=== PATIENT | female | born 1980 | race Caucasian/White ===

== ENCOUNTER 2016-05-02 15:27 | Emergency (ER) | payer OTHER ==
[2016-05-02 15:34] VITALS: BP 128/74; PULSE 85; TEMP 98.1; BMI 44.6
--- NOTE | 2016-05-02 15:39 | PDOC ---
Rapid Medical Evaluation Chief Complaint: Pain Time Seen by Provider: 05/02/16 15:34 Medical Evaluation: Allergies Allergy/AdvReac Type Severity Reaction Status Date / Time No Known Allergies Allergy Verified 02/06/16 17:26 Vital Signs Temp Pulse Resp BP Pulse Ox 98.1 F 85 18 128/74 100 05/02/16 15:33 05/02/16 15:33 05/02/16 15:33 05/02/16 15:33 05/02/16 15:33 05/02/16 15:37 RME Note: I have performed a brief, in-person evaluation of this patient . This patient presents with CC: right wrist pain; tender navicular Pertinent PE findings are: tenwristder thumb and radial area I have ordered: xray The patient will proceed to ED for further evaluation. ,
[2016-05-02] MEDS ORDERED: ACETAMINOPHEN 500 MG TABLET (FP) PO ONE (17:16)
[2016-05-02] MEDS ORDERED: ACETAMINOPHEN 500 MG TABLET (FP) ONE (17:19)
--- NOTE | 2016-05-02 17:39 | PDOC ---
History of Present Illness - General Chief Complaint: Pain Stated Complaint: PAIN/ RT THUMB, WRIST Time Seen by Provider: 05/02/16 15:34 History Source: Patient Exam Limitations: No Limitations - History of Present Illness Initial Comments: 05/02/16 17:14 Chief complaint: Right thumb pain that radiates up her forearm Story of present illness: Patient is a 35-year-old female with a history of bipolar disorder here today complaining of right thumb pain that radiates to her right dorsal forearm to elbow area times one week. Patient reports that approximately one week ago she hit her right hand and forearm on a dresser as she was passing by. Patient reports that pain is sharp and is a 6 or 7. Reports that approximately 6 months ago she had an injury to her right thumb calling it a stress fracture she was seen at [facility] they also had noticed chip fx in her right thumb according to patient. Patient did not follow-up with an orthopedist post discharge from emergency room. 05/02/16 17:16 05/02/16 17:40 Occurred: reports: last week Past History - Past Medical History Allergies/Adverse Reactions: Allergies Allergy/AdvReac Type Severity Reaction Status Date / Time No Known Allergies Allergy Verified 02/06/16 17:26 Home Medications: Ambulatory Orders Hydroxyzine HCl 50 mg PO ASDIR 02/06/16 [place] Carbonate [Eskalith -] 600 mg PO ASDIR 02/06/16 Quetiapine Fumarate "Xr" [Seroquel XR] 150 mg PO DAILY 02/06/16 Clotrimazole/Betamethasone Dip [Clotrimazole-Betamethasone Lot] 30 ml TP BID #1 lotion 02/08/16 Clotrimazole/Betamethasone Dip [Clotrimazole-Betamethasone Lot] 30 ml TP DAILY 10 Days 02/08/16 Psychiatric Problems: Yes (major DEPRESSION, PTSD,BIPOLAR) - Surgical History Abdominal Surgery: Yes (TUBAL LIGAGTION) - Psycho/Social/Smoking Cessation Hx Anxiety: Yes Suicidal Ideation: No Smoking Status: No Smoking History: Current every day smoker Have you smoked in the past 12 months: Yes Number of Cigarettes Smoked Daily: 15 Information on smoking cessation initiated: Yes 'Breaking Loose' booklet given: 05/02/16 Hx Alcohol Use: No Drug/Substance Use Hx: No Substance Use Type: None Review of Systems - Review of Systems Able to Perform ROS?: Yes Constitutional: No: Symptoms Reported HEENTM: No: Symptoms Reported Respiratory: No: Symptoms reported Cardiac (ROS): No: Symptoms Reported ABD/GI: No: Symptoms Reported : No: Symptoms Reported Musculoskeletal: Yes: Joint Pain (rt. thumb,radiates dorsally to rt. forearm to elbow ), Joint Swelling (rt. thumb ) Integumentary: No: Symptoms Reported Neurological: No: Symptoms reported *Physical Exam - Vital Signs Last Vital Signs Temp Pulse Resp BP Pulse Ox 98.1 F 85 18 128/74 100 05/02/16 15:33 05/02/16 15:33 05/02/16 15:33 05/02/16 15:33 05/02/16 15:33 - Physical Exam General Appearance: Yes: Appropriately Dressed Comments:: 05/02/16 17:47 radial pulse 4 + rt. Extremity: positive: Normal Capillary Refill, Normal Range of Motion (rt. thumb dip jt, mcp jt, wrist, elbow ), Tender (snuff box tenderness rt., rt. thumb, rt. dorsal forearm ), Swelling (rt. thumb ). negative: Normal Inspection Integumentary: positive: Normal Color, Swelling (rt. thumb ) Neurologic: positive: Alert, Normal Response, Respond to painful stimul (rt. thumb, hand, wrist and forearm ), Responsive. negative: Sensory Deficit Procedures - Consent Consent obtained: From Patient - Splinting Hand-Made Type: orthoglass Splint Type: Yes: Thumb Spica (rt. ) Post-Proc Neuro Vasc Exam: normal Issac Bandage: yes, 2", 3" Sling: No Complications: No Medical Decision Making - Medical Decision Making 05/02/16 17:39 05/02/16 17:40 Patient is a 35-year-old female with a history of bipolar disorder here today complaining of right thumb pain that radiates to her right dorsal forearm to elbow area times one week. Patient reports that approximately one week ago she hit her right hand and forearm on a dresser as she was passing by. Patient reports that pain is sharp and is a 6 or 7. Reports that approximately 6 months ago she had an injury to her right thumb calling it a stress fracture she was seen at [facility] they also had noticed chip fx in her right thumb according to patient. Patient did not follow-up with an orthopedist post discharge from emergency room. right thumb pain with radiation rt. dorsal forearm r/o fracture rt. thumb contusion, rt. forearm contusion PLAN: xray rt. hand no fracture noted Thumb Spica Ortho-Glass splint applied to right hand thumb acetaminophen 1000 mg by mouth now follow up with orthopedist 05/02/16 17:49 05/03/16 23:29 *DC/Admit/Observation/Transfer Diagnosis at time of Disposition: Pain of right thumb Contusion Qualifiers: Encounter type: initial encounter Contusion area: finger Finger: thumb Damage to nail status: without damage Laterality: right Qualified Code(s): S60.011A - Contusion of right thumb without damage to nail, initial encounter Contusion of forearm, right Qualifiers: Encounter type: initial encounter Qualified Code(s): S50.11XA - Contusion of right forearm, initial encounter - Discharge Dispostion Disposition: HOME Condition at time of disposition: Stable - Referrals Referrals: Aarti Garnica [Primary Care Provider] - - Patient Instructions Additional Instructions: Follow up with your orthopedist as soon as possible Return to emergency room if symptoms worsen any numbness of your right thumb or hand or arm Keep Ortho-Glass splint in place may remove to shower and reapply Take acetaminophen as needed as directed by billing and accounting staff assistant for pain Patient voiced understanding of discharge instructions and all questions were answered
== END 2016-05-02 18:08 | disposition home or self-care (01) ==
LOC: JERFT 15:27
PROC: 2W3JX1Z Immobilization of Right Finger using Splint (ICD-10-PCS; principal; 2016-05-02)
DX: S50.11XA Contusion of right forearm, initial encounter (principal); S60.111A Contusion of right thumb with damage to nail, initial encounter; W22.03XA Walked into furniture, initial encounter; Y93.89 Activity, other specified; Y92.032 Bedroom in apartment as the place of occurrence of the external cause
CPT/HCPCS: 73110-TC-RT; 73130-TC-RT; 99281-25

== ENCOUNTER 2016-08-22 11:57 | Emergency (ER) | payer OTHER ==
[2016-08-22 12:09] VITALS: BP 121/74; PULSE 71; TEMP 98.2; BMI 44.9
[2016-08-22] MEDS ORDERED: DIPHTH,PERTUSS(ACELL),TET 0.5 ML DISP.SYRIN IM ONE (12:40)
--- NOTE | 2016-08-22 12:42 | PDOC ---
History of Present Illness - General Chief Complaint: Abscess Boil Stated Complaint: ABSCESS ON STOMACH Time Seen by Provider: 08/22/16 12:11 History Source: Patient - History of Present Illness Timing/Duration: reports: other Location: reports: torso Past History - Past Medical History Allergies/Adverse Reactions: Allergies Allergy/AdvReac Type Severity Reaction Status Date / Time No Known Allergies Allergy Verified 08/22/16 12:05 Home Medications: Ambulatory Orders Hydroxyzine HCl 50 mg PO ASDIR 02/06/16 [place] Carbonate [Eskalith -] 600 mg PO ASDIR 02/06/16 Quetiapine Fumarate "Xr" [Seroquel XR] 150 mg PO DAILY 02/06/16 Clotrimazole/Betamethasone Dip [Clotrimazole-Betamethasone Lot] 30 ml TP BID #1 lotion 02/08/16 Clotrimazole/Betamethasone Dip [Clotrimazole-Betamethasone Lot] 30 ml TP DAILY 10 Days 02/08/16 Clindamycin [Cleocin -] 300 mg PO Q6HPO #28 capsule 08/22/16 Ibuprofen [Motrin -] 600 mg PO TID #21 tablet 08/22/16 Psychiatric Problems: Yes (major DEPRESSION, PTSD,BIPOLAR) - Surgical History Abdominal Surgery: Yes (TUBAL LIGAGTION) - Psycho/Social/Smoking Cessation Hx Anxiety: Yes Suicidal Ideation: No Smoking Status: No Smoking History: Current every day smoker Have you smoked in the past 12 months: Yes Number of Cigarettes Smoked Daily: 10 Information on smoking cessation initiated: No 'Breaking Loose' booklet given: 05/02/16 Hx Alcohol Use: No Drug/Substance Use Hx: No Substance Use Type: None Review of Systems - Review of Systems Constitutional: No: Chills, Fever ABD/GI: No: Nausea, Vomiting, Abdominal cramping *Physical Exam - Vital Signs Last Vital Signs Temp Pulse Resp BP Pulse Ox 98.2 F 71 19 121/74 98 08/22/16 12:06 08/22/16 12:06 08/22/16 12:06 08/22/16 12:06 08/22/16 12:06 - Physical Exam General Appearance: Yes: Appropriately Dressed. No: Apparent Distress HEENT: positive: Normal Voice Neck: positive: Supple Respiratory/Chest: positive: Respiratory Distress Gastrointestinal/Abdominal: positive: Other (2x2 cm induration w/ fluctuance and minimal overlying erythema to RLQ) Extremity: positive: Normal Inspection Integumentary: positive: Dry, Warm Neurologic: positive: Fully Oriented, Alert, Normal Mood/Affect Procedures - Incision and Drainage I&D Site: Right: Abdomen (abd wall abscess) Betadine cleansed: Yes Anesthesia: 1% Lidocaine Volume(ml): 7 Blade Size: 11 Attempts: 1 (w/ copious purulent discharge) Iodinated Packin/4 in Complications: none Dressing: Yes Medical Decision Making - Medical Decision Making 08/22/16 12:40 36-year-old female, morbidly obese, recurrent abdominal wall abscesses, here with pain and swelling to right lower abdomen 4 days. No fever or chills. No trauma. See exam Abd wall abscess Recurrent No e/o deeper infxn at this time -tetanus -pain control -I&D -wound check in 48 hrs 08/22/16 13:21 *DC/Admit/Observation/Transfer Diagnosis at time of Disposition: Abdominal wall abscess - Discharge Dispostion Disposition: HOME Condition at time of disposition: Improved - Prescriptions Prescriptions: Clindamycin [Cleocin -] 300 mg PO Q6HPO #28 capsule Ibuprofen [Motrin -] 600 mg PO TID #21 tablet - Patient Instructions Printed Discharge Instructions: DI for Incision and Drainage of a Skin Abscess Additional Instructions: Keep wound clean and dry for 2 days Take medications as directed Return to ED in 2 days for wound check
== END 2016-08-22 13:21 | disposition home or self-care (01) ==
LOC: JERFT 11:57
PROC: 0H97XZZ Drainage of Abdomen Skin, External Approach (ICD-10-PCS; principal; 2016-08-22)
DX: L02.211 Cutaneous abscess of abdominal wall (principal); F31.89 Other bipolar disorder; F43.10 Post-traumatic stress disorder, unspecified
CPT/HCPCS: 87070; 87186; 87205; 90715; 99281-25

== ENCOUNTER 2016-08-28 09:38 | Emergency (ER) | payer OTHER ==
[2016-08-28 09:44] VITALS: BP 129/80; PULSE 70; TEMP 98.3; BMI 44.9
--- NOTE | 2016-08-28 10:45 | PDOC ---
Suture Removal/Wound Check HPI - History of Present Illness Chief Complaint: Revisit,Wound Recheck Stated Complaint: REVISIT/ WOUND CHECK Time Seen by Provider: 08/28/16 10:14 History Source: Yes: Patient Exam Limitations: Yes: No Limitations [facility] Date of Last ED visit: 08/22/16 - Previous ED Treatment Type of procedure performed on last visit: Yes: I&D of Abscess Tetanus Immunization: Yes: Up to Date Antibiotics Prescribed: Yes (Clindamycin) Past History - Past Medical History Allergies/Adverse Reactions: Allergies No Known Allergies Allergy (Verified 08/28/16 09:44) Home Medications: Ambulatory Orders Hydroxyzine HCl 50 mg PO ASDIR 02/06/16 [place] Carbonate [Eskalith -] 600 mg PO ASDIR 02/06/16 Quetiapine Fumarate "Xr" [Seroquel XR] 150 mg PO DAILY 02/06/16 General: Yes: no pertinent history - Reproductive History LMP: 02/10/12 - Social History Smoking History: No Smoking Status: Current some day smoker Number of Ciarettes Per Day: 10 Alcohol Use: none Suture Removal/Wound Check PE - Physical Exam Laceration/Wound Check Symptoms: reports: None Current Severity Level: None Maximum Severity Level: None Pain Localization: None *Review of Systems - Review of Systems Constitutional: No: Symptoms Reported Respiratory: No: Symptoms reported Cardiac (ROS): No: Symptoms Reported Musculoskeletal: No: Symptoms Reported Integumentary: Yes: Erythema (resolving, no induration, healing well. ) Hematologic/Lymphatic: No: Symptoms Reported All Other Systems: Reviewed and Negative Medical Decision Making - Medical Decision Making 08/28/16 10:43 A/P : Patient here for wound check one week after IUD to right lower abdomen, wound culture was evaluated clindamycin susceptible to staph. Patient to continue current care, wound is healing well, follow-up with surgery. *DC/Admit/Observation/Transfer Diagnosis at time of Disposition: Wound check, abscess - Discharge Dispostion Disposition: HOME Condition at time of disposition: Good Admit: No - Referrals Referrals: Aarti Garnica [Primary Care Provider] - - Patient Instructions Printed Discharge Instructions: DI for Wound Infection Additional Instructions: Continue current antibiotic treatment, follow-up as needed.
== END 2016-08-28 10:46 | disposition home or self-care (01) ==
LOC: JERFT 09:38
DX: Z09 Encounter for follow-up examination after completed treatment for conditions other than malignant neoplasm (principal)
CPT/HCPCS: 99281-25

== ENCOUNTER 2017-01-05 17:35 | Emergency (ER) | payer OTHER ==
[2017-01-05 17:44] VITALS: BMI 49.0
--- NOTE | 2017-01-05 18:20 | PDOC ---
Attending Attestation - HPI HPI: 01/05/17 18:47 The patient is a 36 year old female with past medical history of obesity who presents to the ED with complaints of multiple abscesses on her trunk for the past week. The patient has multiple abscesses on her abdomen, as well as her groin and her axilla. She states she was in the ED two days ago where the provider said the abscesses were "too infected" to drain. She was subsequently started on bactrim and to follow up with ID. However, within the past two days her abscesses began draining, she developed a fever, and was unable to see the ID physician so she returned to the ED. - Medical Decision Making 01/05/17 18:51 Documentation prepared by Suzi Raza, acting as medical records technician for Charlette Hdez MD. <Suzi Raza - Last Filed: 01/05/17 18:47> - Resident Resident Name: Steffanie Rebollar - ED Attending Attestation I have performed the following: I have examined & evaluated the patient, The case was reviewed & discussed with the resident, I agree w/resident's findings & plan, Exceptions are as noted - Physicial Exam PE: GENERAL: Awake, alert, and fully oriented, in no acute distress. Obese. HEAD: No signs of trauma EYES: PERRLA, EOMI, sclera anicteric, conjunctiva clear ENT: Auricles normal inspection, hearing grossly normal, nares patent, oropharynx clear without exudates. Moist mucosa NECK: Normal ROM, supple, no lymphadenopathy, JVD, or masses LUNGS: Breath sounds equal, clear to auscultation bilaterally. No wheezes, and no crackles HEART: Regular rate and rhythm, normal S1 and S2, no murmurs, rubs or gallops ABDOMEN: Soft, nontender, normoactive bowel sounds. No guarding, no rebound. No masses EXTREMITIES: Normal range of motion, no edema. No clubbing or cyanosis. No cords, erythema, or tenderness NEUROLOGICAL: Cranial nerves II through XII grossly intact. Normal speech, normal gait SKIN: Warm, Dry, normal turgor. +10cm x 5cm area of erythema to the LLQ with fluctuant lesion in the center, no active drainage. R upper thigh with small fluctuant lesion and surrounding erythema. - Medical Decision Making Patient with 2 skin abscesses. Drained in ED. Cultures pending. Given abx and pain medication. Stable for DC home. <Charlette Hdez - Last Filed: 01/08/17 08:44>
[2017-01-05] MEDS ORDERED: VANCOMYCIN 1,000 MG in DEXTROSE 5%-WATER - 250 ML IVPB ONE (18:57)
[2017-01-05] MEDS ORDERED: SODIUM CHLORIDE 1,000 ML IV STA (18:58)
--- NOTE | 2017-01-05 19:07 | PDOC ---
History of Present Illness - General Chief Complaint: Abscess Boil Stated Complaint: ABSCESS Time Seen by Provider: 01/05/17 18:07 History Source: Patient - History of Present Illness Initial Comments: 01/05/17 19:02 Patient is a 36 yo obese f presented to the ED complaining of multiple skin abscesses. She said she came to the ED 2 days ago for the same reason, was discharged on bactrim and instructed to follow up with ID. She states the antibiotics are not working and the abscesses are getting bigger. She said she couldn't wait to follow up with ID because today she developed fever, nausea, vomiting, and headaches. She denies dizziness, chest pain, urinary symptoms, cough, and SOB. Past History - Past Medical History Allergies/Adverse Reactions: Allergies Allergy/AdvReac Type Severity Reaction Status Date / Time No Known Allergies Allergy Verified 01/05/17 17:41 Home Medications: Ambulatory Orders [place] Carbonate [Eskalith -] 600 mg PO ASDIR 02/06/16 Quetiapine Fumarate "Xr" [Seroquel XR] 150 mg PO DAILY 02/06/16 Sulfamethoxazole/Trimethoprim [Bactrim Ds Tablet] 1 each PO BID #20 tablet 01/03 Buspirone HCl [Buspar -] 5 mg PO ONCE 01/05/17 Zolpidem Tartrate [Ambien] 10 mg PO HS 01/05/17 COPD: No Kidney Stones: Yes Psychiatric Problems: Yes (major DEPRESSION, PTSD,BIPOLAR) - Surgical History Abdominal Surgery: Yes (TUBAL LIGAGTION) - Suicide/Smoking/Psychosocial Hx Smoking Status: No Smoking History: Current every day smoker Have you smoked in the past 12 months: Yes Number of Cigarettes Smoked Daily: 15 Information on smoking cessation initiated: No 'Breaking Loose' booklet given: 01/03/17 Hx Alcohol Use: Yes (SOCIAL) Drug/Substance Use Hx: No Substance Use Type: None Review of Systems - Review of Systems Constitutional: Yes: Fever. No: Chills, Diaphoresis Respiratory: No: Cough, Wheezing, Productive cough Cardiac (ROS): No: Chest Pain, Lightheadedness, Palpitations *Physical Exam - Vital Signs Last Vital Signs Temp Pulse Resp BP Pulse Ox 99.7 F H 100 H 20 140/85 97 01/05/17 17:36 01/05/17 17:36 01/05/17 17:36 01/05/17 17:36 01/05/17 17:36 - Physical Exam Comments: 01/05/17 19:14 General: appears comfortable, in no acute distress CV: RRR, no murmurs appreciated, s1 s2 wnl Lungs: Cta b/l, no rales rhonchi or wheezing Abd: +BS, nt, nd Integumentary: positive: Other (left abdomen, left inner thigh , right inner thigh with indurated 2cm maculopapular lesions with dark centers, inner thigh left side with redness surrounding the area, no drainage Procedures - Incision and Drainage I&D Site: Left: Abdomen, Right: Groin Anesthesia: 1% Lidocaine Volume(ml): 3 Blade Size: 11 Attempts: 1 (1 for each site) Complications: none Dressing: Yes Progress: 01/05/17 19:09 Patient tolerated well. Minimal blood loss. cultures sent. Medical Decision Making - Medical Decision Making 1 gram Vancomycin IV 1 L bolus Fluids NS Serum Incision and drainage w/ wound culture *DC/Admit/Observation/Transfer Diagnosis at time of Disposition: Abscess - Discharge Dispostion Disposition: HOME Admit: No - Referrals Referrals: Aarti Garnica [Primary Care Provider] - - Patient Instructions - Post Discharge Activity
[2017-01-05] MEDS ORDERED: VANCOMYCIN 1 GRAM (PRE-DOCKED) 1,000 MG/250 ML BAG IVPB ONE (19:23)
--- NOTE | 2017-01-05 19:24 | PDOC ---
*Physical Exam - Vital Signs Last Vital Signs Temp Pulse Resp BP Pulse Ox 99.7 F H 100 H 20 140/85 97 01/05/17 17:36 01/05/17 17:36 01/05/17 17:36 01/05/17 17:36 01/05/17 17:36 - Physical Exam Comments: 01/05/17 19:24 GENERAL: Awake, alert, and fully oriented, in no acute distress HEAD: No signs of trauma, normocephalic, atraumatic EYES: PERRLA, EOMI, sclera anicteric, conjunctiva clear ENT: Hearing grossly normal, nares patent, oropharynx clear without exudates. Moist mucosa NECK: Normal ROM, no JVD, or masses LUNGS: No distress, speaks full sentences, clear to auscultation bilaterally HEART: Regular rate and rhythm, normal S1 and S2, no murmurs, rubs or gallops, peripheral pulses normal and equal bilaterally. EXTREMITIES : Normal inspection, Normal range of motion, no edema. No clubbing or cyanosis. SKIN: Warm, Dry, normal turgor, no rashes or lesions noted. Integumentary: left sided abdomen and right sided iguinal region with indurated 2cm maculopapular non draining lesions. + Overlying cellulitis. Medical Decision Making - Medical Decision Making 01/05/17 19:[address] Rebollar 36 yo F with h/o obesity who presented to the ED with complaint of multiple skin abscesses. Recently seen in ED 2 days ago for the similiar complaint and was D/c'd home on bactrim. Has noticed abscesses are getting bigger and more painful despite antibiotic therapy. Now presents with new onset fever, nausea, vomiting, and headaches. Afebrile in ED. Ed course notable for I&D x 2. Vancomycin 1000 mg x 1. ED Course: 01/05/17 19:27 HCG pending. 01/05/17 20:15 HCG Neg. Toradol 30 mg IVP 01/05/17 20:39 Patient is stable and ready for discharge. Advised to f/u with ID or PCP in the next week with strict return precautions. Will take Clindamycin. *DC/Admit/Observation/Transfer Diagnosis at time of Disposition: Abscess - Discharge Dispostion Disposition: HOME Condition at time of disposition: Improved Admit: No - Prescriptions Prescriptions: Clindamycin [Cleocin -] 300 mg PO Q6H 7 Days #28 capsule MDD 4 Tab - Referrals Referrals: Aarti Garnica [Primary Care Provider] - - Patient Instructions Printed Discharge Instructions: DI for Incision and Drainage of a Skin Abscess Additional Instructions: Please return to the emergency department with any new or worsening symptoms or concerns. Please follow up with your primary care physician within the next 1 week. Please return to the emergency department within 7-10 days to have packing removed or follow up with your primary care physician to remove packing. Please take Clindamycin 4 times per day. - Post Discharge Activity - Attestations Physician Attestion: 01/05/17 20:17 I attest to the documentation provided in this note.
[2017-01-05] MEDS ORDERED: KETOROLAC TROMETHAMINE 30 MG/1 ML VIAL IVPUSH ONE (20:04)
[2017-01-05] MEDS ORDERED: KETOROLAC TROMETHAMINE 30 MG/1 ML VIAL ONE (20:07)
[2017-01-05 20:54] VITALS: BP 126/78; PULSE 79; TEMP 99
== END 2017-01-05 20:54 | disposition home or self-care (01) ==
LOC: JER 17:35
PROC: 0J980ZZ Drainage of Abdomen Subcutaneous Tissue and Fascia, Open Approach (ICD-10-PCS; principal; 2017-01-05)
PROC: 0W9F0ZZ Drainage of Abdominal Wall, Open Approach (ICD-10-PCS; 2017-01-05)
DX: L02.214 Cutaneous abscess of groin (principal); L02.211 Cutaneous abscess of abdominal wall; L02.416 Cutaneous abscess of left lower limb; L02.415 Cutaneous abscess of right lower limb
CPT/HCPCS: 10060; 36415; 84703; 87070; 87186; 87205; 99283-25

== ENCOUNTER 2017-11-12 18:46 | Emergency (ER) | payer OTHER ==
[2017-11-12 19:03] VITALS: BP 190/107; PULSE 75; TEMP 98.6; BMI 45.1
--- NOTE | 2017-11-12 19:04 | PDOC ---
Rapid Medical Evaluation Chief Complaint: Cold Symptoms Time Seen by Provider: 11/12/17 18:58 Medical Evaluation: Allergies Allergy/AdvReac Type Severity Reaction Status Date / Time No Known Allergies Allergy Verified 11/12/17 19:00 11/12/17 19:03 I have performed a brief in-person evaluation of this patient. The patient presents with a chief complaint of: smoker with h/o 2 wks h/o non- productive cough, runny nose and nasal congestion with chest pain from coughing Pertinent physical exam findings:lungs CTA B/L. heart normal RRR I have ordered the following:CXR The patient will proceed to the ED for further evaluation. Discharge Disposition - Diagnosis Upper respiratory infection Qualifiers: URI type: unspecified URI Qualified Code(s): J06.9 - Acute upper respiratory infection, unspecified - Referrals Referrals: Aarti Garnica [Primary Care Provider] - - Patient Instructions - Post Discharge Activity
--- NOTE | 2017-11-12 19:49 | PDOC ---
History of Present Illness - General Chief Complaint: Cold Symptoms Stated Complaint: CHEST PAIN Time Seen by Provider: 11/12/17 18:58 - History of Present Illness Initial Comments: 37-year-old female with cough fever chills and night sweats 2 weeks for son was recently treated for pneumonia she has a history of bipolar and depression. 11/12/17 19:47 Past History - Past Medical History Allergies/Adverse Reactions: Allergies Allergy/AdvReac Type Severity Reaction Status Date / Time No Known Allergies Allergy Verified 11/12/17 19:00 Home Medications: Ambulatory Orders [place] Carbonate [Eskalith -] 600 mg PO HS 02/06/16 Buspirone HCl [Buspar -] 15 mg PO BID 01/05/17 Buspirone HCl 30 mg PO HS 04/12/17 Haloperidol [Haldol -] 5 mg PO HS 04/12/17 [place] Carbonate [Eskalith -] 300 mg PO DAILY 04/12/17 Azithromycin [Zithromax -] 250 mg PO UTDICT #6 tab 11/12/17 Guaifenesin [Robitussin] 5 ml PO HS #30 ml 11/12/17 COPD: No Kidney Stones: Yes Psychiatric Problems: Yes (major DEPRESSION, PTSD,BIPOLAR) - Surgical History Abdominal Surgery: Yes (TUBAL LIGAGTION) - Suicide/Smoking/Psychosocial Hx Smoking Status: No Smoking History: Current some day smoker Have you smoked in the past 12 months: Yes Number of Cigarettes Smoked Daily: 3 Information on smoking cessation initiated: No 'Breaking Loose' booklet given: 01/03/17 Hx Alcohol Use: No Drug/Substance Use Hx: No Substance Use Type: None Review of Systems - Review of Systems Constitutional: Yes: Chills, Diaphoresis, Fever, Malaise, Night Sweats, Weakness Respiratory: Yes: Cough *Physical Exam - Vital Signs Last Vital Signs Temp Pulse Resp BP Pulse Ox 98.6 F 75 20 190/107 H 99 11/12/17 19:00 11/12/17 19:00 11/12/17 19:00 11/12/17 19:00 11/12/17 19:00 - Physical Exam Comments: HEAD: NC/AT EYES: Conjuntiva clear Ears: Canals and TM's normal NOSE: No d/c THROAT: Moist mucous membrances, oral pharanx clear, uvula midline NECK: Supple without adenopathy CARDIAC: S1 S2 LUNGS: Minimal rhonchi at the right base otherwise clear ABDOMEN: Soft NT ND MS: Full ROM in all joints without edema NEUROLOGIC: No gross sensory or motor deficits, NVID SKIN: Normal color and temperature no lesions or rashes 11/12/17 19:48 ED Treatment Course - ADDITIONAL ORDERS Additional order review: Laboratory Results 11/12/17 19:25 Urine HCG, Qual Negative *DC/Admit/Observation/Transfer Diagnosis at time of Disposition: Bronchitis Upper respiratory infection Qualifiers: URI type: unspecified URI Qualified Code(s): J06.9 - Acute upper respiratory infection, unspecified - Discharge Dispostion Disposition: HOME Condition at time of disposition: Stable Decision to Admit order: No - Referrals Referrals: Aarti Garnica [Primary Care Provider] - - Patient Instructions Printed Discharge Instructions: DI for Acute Bronchitis Additional Instructions: Take the medication and cough syrup as directed. Please follow-up with your primary care physician once 2 days for further evaluation and treatment options. Return to the emergency room should symptoms worsen or go unresolved. May supplement your medication with Tylenol and Motrin as directed for fever - Post Discharge Activity
--- NOTE | 2017-11-13 14:33 | EKG ---
Test Reason : Blood Pressure : / mmHG Vent. Rate : 066 BPM Atrial Rate : 066 BPM P-R Int : 152 ms QRS Dur : 094 ms QT Int : 398 ms P-R-T Axes : 012 037 032 degrees QTc Int : 417 ms NORMAL SINUS RHYTHM NORMAL ECG WHEN COMPARED WITH ECG OF 12-APR-2017 08:07, NO SIGNIFICANT CHANGE WAS FOUND Confirmed by ALTA TARANGO MD ([id number]) on 11/13/2017 2:32:33 PM Referred By: Confirmed By:ALTA TARANGO MD
== END 2017-11-12 19:54 | disposition home or self-care (01) ==
LOC: JERFT 18:46
DX: J06.9 Acute upper respiratory infection, unspecified (principal); F17.210 Nicotine dependence, cigarettes, uncomplicated; F31.9 Bipolar disorder, unspecified; F43.10 Post-traumatic stress disorder, unspecified; F33.9 Major depressive disorder, recurrent, unspecified
CPT/HCPCS: 84703; 93005; 93010; 99281-25

== ENCOUNTER 2018-06-02 17:33 | Emergency (ER) | payer OTHER ==
[2018-06-02 17:38] VITALS: BP 142/82; PULSE 77; TEMP 98.1; BMI 54.9
--- NOTE | 2018-06-02 17:38 | PDOC ---
Rapid Medical Evaluation Chief Complaint: Laceration Time Seen by Provider: 06/02/18 17:34 Medical Evaluation: Allergies Allergy/AdvReac Type Severity Reaction Status Date / Time No Known Allergies Allergy Verified 06/02/18 17:34 06/02/18 17:36 c/o laceration to tongue after biting down on it. patient reports that she was at the dentist today and tongue is numb from local anesthesia. PE; + 1 cm laceration to tongue A: Tongue Laceration P; patient to fast track for further management of care. Discharge Disposition - Diagnosis Laceration of tongue without complication Qualifiers: Encounter type: initial encounter Qualified Code(s): S01.512A - Laceration without foreign body of oral cavity, initial encounter - Referrals - Patient Instructions - Post Discharge Activity
--- NOTE | 2018-06-02 18:07 | PDOC ---
History of Present Illness - General Chief Complaint: Laceration Stated Complaint: PAIN IN THE MOUTH Time Seen by Provider: 06/02/18 17:34 - History of Present Illness Initial Comments: 06/02/18 18:04 37-year-old female without comorbidities presents for evaluation of a laceration on her tongue. She states she was at the dentist office bit her tongue while he was checking the bite after a filling and lacerated her tongue. According to her dentist he said there was nothing to do area patient came to the emergency room for further evaluation and a second opinion. Past History - Past Medical History Allergies/Adverse Reactions: Allergies Allergy/AdvReac Type Severity Reaction Status Date / Time No Known Allergies Allergy Verified 06/02/18 17:34 Home Medications: Ambulatory Orders [place] Carbonate [Eskalith -] 600 mg PO HS 02/06/16 Buspirone HCl [Buspar -] 15 mg PO BID 01/05/17 Buspirone HCl 30 mg PO HS 04/12/17 Haloperidol [Haldol -] 5 mg PO HS 04/12/17 [place] Carbonate [Eskalith -] 300 mg PO DAILY 04/12/17 Azithromycin [Zithromax -] 250 mg PO UTDICT #6 tab 11/12/17 Guaifenesin [Robitussin] 5 ml PO HS #30 ml 11/12/17 COPD: No Kidney Stones: Yes Psychiatric Problems: Yes (major DEPRESSION, PTSD,BIPOLAR) - Surgical History Abdominal Surgery: Yes (TUBAL LIGAGTION) - Immunization History Immunization Up to Date: Yes - Suicide/Smoking/Psychosocial Hx Smoking Status: No Smoking History: Never smoked Have you smoked in the past 12 months: Yes Number of Cigarettes Smoked Daily: 3 'Breaking Loose' booklet given: 01/03/17 Hx Alcohol Use: No Drug/Substance Use Hx: No Substance Use Type: None Review of Systems - Review of Systems HEENTM: Yes: See HPI *Physical Exam - Vital Signs Last Vital Signs Temp Pulse Resp BP Pulse Ox 98.1 F 77 18 142/82 100 06/02/18 17:36 06/02/18 17:36 06/02/18 17:36 06/02/18 17:36 06/02/18 17:36 - Physical Exam Comments: 06/02/18 18:05 There is about a 2 mm laceration on the left side of the tongue at the lateral anterior tip about 1 mm deep no muscle is exposed Medical Decision Making - Medical Decision Making 06/02/18 18:05 This case was discussed with our emergency room attending. Who also evaluated the patient, we have elected to put to chromic gut sutures in order to close the laceration. The laceration was closed with 2 5-0 chromic gut sutures placed in a simple interrupted fashion the patient was still anesthetized and it was tolerated very well. This was done in order to prevent food from entering the area. *DC/Admit/Observation/Transfer Diagnosis at time of Disposition: Laceration of tongue without complication Qualifiers: Encounter type: initial encounter Qualified Code(s): S01.512A - Laceration without foreign body of oral cavity, initial encounter - Discharge Dispostion Disposition: HOME Condition at time of disposition: Stable Decision to Admit order: No - Referrals - Patient Instructions Additional Instructions: Return to the emergency room for any issues. Follow-up with your dentist as scheduled. The sutures that were placed and your tongue today are dissolvable and should come out by themselves in about 5-7 days. You may take Tylenol and Motrin as directed for pain. - Post Discharge Activity
== END 2018-06-02 18:09 | disposition home or self-care (01) ==
LOC: JERFT 17:33
DX: S01.512A Laceration without foreign body of oral cavity, initial encounter (principal); Y93.89 Activity, other specified; Y92.531 Health care provider office as the place of occurrence of the external cause; Y99.8 Other external cause status; Y33.XXXA Other specified events, undetermined intent, initial encounter
CPT/HCPCS: 99281-25

== ENCOUNTER 2019-02-27 13:57 | Emergency (ER) | payer OTHER ==
[2019-02-27 14:06] VITALS: BP 130/71; PULSE 74; TEMP 98.5; BMI 53.8
--- NOTE | 2019-02-27 14:21 | PDOC ---
History of Present Illness - General Chief Complaint: Pain, Acute Stated Complaint: LT KNEE PAIN Time Seen by Provider: 02/27/19 14:09 - History of Present Illness Initial Comments: 02/27/19 14:20 CHIEF COMPLAINT: left knee pain HISTORY OF PRESENT ILLNESS: 38 yo morbidly obese F presents to ED with left knee pain x 1 hour. Patient reports that her mother was "choking" and she "went to go do the Heimlich" and when I lifted her up I felt my knee just pop out and pop back in. I sat down and then when I tried to get up it popped out and back in again, so I got scared and came here." Patient states she has not been able to bear weight on her left leg since the incident. No recent travel or sick contacts. PAST MEDICAL HISTORY: Denies past medical history FAMILY HISTORY: Denies SOCIAL HISTORY: Denies tobacco, alcohol, illicit drug use. SURGICAL HISTORY: Denies ALLERGIES: No known drug allergies REVIEW OF SYSTEMS General/Constitutional: Denies fever or chills. Denies weakness, weight change. HEENT: Denies change in vision. Denies ear pain or discharge. Denies sore throat. Cardiovascular: Denies chest pain or shortness of breath. Respiratory: Denies cough, wheezing, or hemoptysis. Gastrointestinal: Denies nausea, vomiting, diarrhea or constipation. Denies rectal bleeding. Genitourinary: Denies dysuria, frequency, or change in urination. Musculoskeletal: L knee pain. Skin and breasts: Denies rash or easy bruising. Neurologic: Denies headache, vertigo, loss of consciousness, or loss of sensation. Psychiatric: Denies depression or anxiety. PHYSICAL EXAM General Appearance: Morbidly obese. Well-appearing, appropriately dressed. No apparent distress, no intoxication. HEENT: EOMI, PERRLA, normal ENT inspection, normal voice, TMs normal, pharynx normal. No conjunctival pallor. No photophobia, scleral icterus. Neck: Supple. Trachea midline. No tenderness, rigidity, carotid bruit, stridor , lymphadenopathy, or thyromegaly. Respiratory/Chest: Lungs CTAB. No shortness of breath, chest tenderness, respiratory distress, accessory muscle use. No crackles, rales, rhonchi, stridor , wheezing, dullness Cardiovascular: RRR. S1, S2. No JVD, murmur, bradycardia, tachycardia. Vascular Pulses: Dorsalis-Pedis (R): 2+, Dorsalis-Pedis (L): 2+ Gastrointestinal/Abdominal: Normal bowel sounds. Abdomen soft, non-distended. No tenderness or rebound tenderness. No organomegaly, pulsatile mass, guarding , hernia, hepatomegaly, splenomegaly. Lymphatic: No adenopathy, tenderness. Musculoskeletal/Extremities: Normal inspection. FROM of all extremities, normal capillary refill. Pelvis Stable. No CVA tenderness. No tenderness to extremities, pedal edema, swelling, erythema or deformity. Integumentary: Appropriate color, dry, warm. No cyanosis, erythema, jaundice or rash Neurologic: civil service clerk II-XII intact. Fully oriented, alert. Appropriate mood/affect. Motor strength 5/5. No appreciable EOM palsy, facial droop or sensory deficit. 02/27/19 14:28 Past History - Past Medical History Allergies/Adverse Reactions: Allergies Allergy/AdvReac Type Severity Reaction Status Date / Time No Known Allergies Allergy Verified 06/02/18 17:34 Home Medications: Ambulatory Orders [place] Carbonate [Eskalith -] 600 mg PO HS 02/06/16 Buspirone HCl [Buspar -] 15 mg PO BID 01/05/17 Buspirone HCl 30 mg PO HS 04/12/17 Haloperidol [Haldol -] 5 mg PO HS 04/12/17 [place] Carbonate [Eskalith -] 300 mg PO DAILY 04/12/17 Azithromycin [Zithromax -] 250 mg PO UTDICT #6 tab 11/12/17 Guaifenesin [Robitussin] 5 ml PO HS #30 ml 11/12/17 Diclofenac Sodium [Voltaren -] 75 mg PO BID #14 tablet. 02/27/19 COPD: No Kidney Stones: Yes Psychiatric Problems: Yes (major DEPRESSION, PTSD,BIPOLAR) - Surgical History Abdominal Surgery: Yes (TUBAL LIGAGTION) - Immunization History Immunization Up to Date: Yes - Psycho Social/Smoking Cessation Hx Smoking Status: No Smoking History: Never smoked Have you smoked in the past 12 months: No Number of Cigarettes Smoked Daily: 3 Information on smoking cessation initiated: No 'Breaking Loose' booklet given: 01/03/17 Hx Alcohol Use: No Drug/Substance Use Hx: No Substance Use Type: None *Physical Exam - Vital Signs Last Vital Signs Temp Pulse Resp BP Pulse Ox 98.5 F 74 18 130/71 98 02/27/19 14:03 02/27/19 14:03 02/27/19 14:03 02/27/19 14:03 02/27/19 14:03 Medical Decision Making - Medical Decision Making 02/27/19 14:30 38 yo morbidly obese F presents to ED with left knee pain x 1 hour. -L knee xray 02/27/19 14:50 X-ray negative for acute fx/dislocation. likely ligamental strain. -NSAIDS -Crutches f/u with ortho. Discharge - Discharge Information Problems reviewed: Yes Clinical Impression/Diagnosis: Knee pain Qualifiers: Chronicity: acute Laterality: left Qualified Code(s): M25.562 - Pain in left knee Condition: Stable - Admission No - Additional Discharge Information Prescriptions: Diclofenac Sodium [Voltaren -] 75 mg PO BID #14 tablet.dr - Follow up/Referral Referrals: Kirby Warren MD [Staff Physician] - - Patient Discharge Instructions Patient Printed Discharge Instructions: DI for Knee Pain, How To Perform RICE ( Rest, Ice, Compress, Elevate) - Post Discharge Activity Work/Back to School Note: Back to Work
[2019-02-27] MEDS ORDERED: IBUPROFEN 600 MG TABLET (FP) PO ONE ×2 (14:30→14:37)
== END 2019-02-27 15:10 | disposition home or self-care (01) ==
LOC: JERFT 13:57
DX: M25.562 Pain in left knee (principal); X50.9XXA Other and unspecified overexertion or strenuous movements or postures, initial encounter; Y93.89 Activity, other specified; Y92.038 Other place in apartment as the place of occurrence of the external cause; Y99.8 Other external cause status; E66.01 Morbid (severe) obesity due to excess calories; Z68.42 Body mass index [BMI] 45.0-49.9, adult; Z68.43 Body mass index [BMI] 50.0-59.9, adult; F31.9 Bipolar disorder, unspecified; F43.10 Post-traumatic stress disorder, unspecified; F32.9 Major depressive disorder, single episode, unspecified; Z87.442 Personal history of urinary calculi
CPT/HCPCS: 73562-TC-LT-FY; 99281-25

== ENCOUNTER 2022-08-18 08:03 | Emergency (ER) | payer OTHER ==
[2022-08-18 08:08] VITALS: RESP 18; BMI 53.2
[2022-08-18 09:49] LABS: BASO % 1.1 % (0-2.0); EOS % 2.3 % (0-4.5); HEMATOCRIT 40.4 % (32.4-45.2); HEMOGLOBIN 13.4 GM/dL (10.7-15.3); LYMPH % 26.9 % (8-40); MCH 28.3 pg (25.7-33.7); MCHC 33.1 g/dl (32.0-36.0); MEAN CELL VOLUME 85.5 fl (80-96); MEAN PLT VOLUME 9.2 fl (7.5-11.1); MONO % 12.5 % (3.8-10.2); NEUT % 57.2 % (42.8-82.8); PLATELET COUNT 303 10^3/uL (134-434); RBC 4.73 M/mm3 (3.60-5.2); RDW 15.6 % (11.6-15.6); WHITE BLOOD COUNT 6.4 K/mm3 (4.0-10.0)
[2022-08-18] MEDS: ALBUTEROL SO4 2.5/IPRATROPIUM 0.5 INH SOL 3 ML VIAL.NEB. NEB SCH ×3 (10:20→11:22)
[2022-08-18 10:44] LABS: CALCIUM 9.4 mg/dL (8.5-10.1)
[2022-08-18 10:45] LABS: ALBUMIN 3.8 g/dl (3.4-5.0); BLOOD UREA NITROGEN 9.5 mg/dL (7-18); MAGNESIUM 2.2 mg/dL (1.8-2.4)
[2022-08-18 10:48] LABS: CREATININE 0.9 mg/dL (0.55-1.3)
[2022-08-18 10:49] LABS: BILIRUBIN,TOTAL 0.4 mg/dL (0.2-1)
[2022-08-18 10:50] LABS: TOT PROT 7.2 g/dl (6.4-8.2)
[2022-08-18 12:23] VITALS: BP 144/89; PULSE 72; TEMP 97.8
== END 2022-08-18 12:20 | disposition home or self-care (01) ==
LOC: JER 08:03
PROC: 3E0F7GC Introduction of Other Therapeutic Substance into Respiratory Tract, Via Natural or Artificial Opening (ICD-10-PCS; principal; 2022-08-18)
DX: R06.02 Shortness of breath (principal); R05.9 Cough, unspecified; R09.81 Nasal congestion; J06.9 Acute upper respiratory infection, unspecified; Z20.822 Contact with and (suspected) exposure to COVID-19
CPT/HCPCS: 0241U-QW; 36415; 71046-TC-FY; 80053; 83735; 85025; 99284-25

== ENCOUNTER 2023-07-27 15:40 | Emergency (ER) | payer OTHER ==
[2023-07-27 15:48] VITALS: BP 125/81; PULSE 74; RESP 18; TEMP 98.5; BMI 54.9
[2023-07-27] MEDS ORDERED: IBUPROFEN 400 MG TABLET (FP) PO ONE (17:19)
[2023-07-27] MEDS ORDERED: ACETAMINOPHEN 500 MG TABLET (FP) ONE (17:20)
[2023-07-27] MEDS: ACETAMINOPHEN 500 MG TABLET (FP) PO ONE (17:22)
[2023-07-27] MEDS: IBUPROFEN 400 MG TABLET (FP) PO ONE (17:22)
== END 2023-07-27 18:58 | disposition home or self-care (01) ==
LOC: JERFT 15:40 → JER 15:40 → JERFT 18:58
DX: M77.31 Calcaneal spur, right foot (principal); M79.671 Pain in right foot
CPT/HCPCS: 73630-TC-RT-FY; 99283-25